=== PATIENT | male | born 1950 | race Caucasian/White ===

== ENCOUNTER 2017-03-12 16:15 | Outpatient (CLI) | payer OTHER ==
[2017-03-12 17:59] LABS: Hematocrit 50.6 % (42.0-52.0); Mean Platelet Volume 7.4 fL (7.4-10.4); Red Blood Cell (RBC) Count 4.89 mill/uL (4.70-6.10); White Blood Cell (WBC) Count 8.3 thou/uL (4.8-10.8)
[2017-03-12 18:22] LABS: Anion Gap 14 mmol/L (10-20); BUN (Urea Nitrogen) 17 mg/dL (8.4-25.7); Calc. Creatinine Clearance 0 mL/min (70-130); Calcium 9.7 mg/dL (7.8-10.44); Carbon Dioxide 31 mmol/L (23-31); Chloride 97 mmol/L (98-107); Estimated GFR-MDRD Greater than 90
--- NOTE | 2017-03-13 13:10 | EKG ---
Test Reason : Blood Pressure : / mmHG Vent. Rate : 075 BPM Atrial Rate : 075 BPM P-R Int : 170 ms QRS Dur : 098 ms QT Int : 374 ms P-R-T Axes : 043 042 023 degrees QTc Int : 417 ms Normal sinus rhythm Normal ECG When compared with ECG of 05-NOV-2013 08:33, No significant change was found Confirmed by ISAEL ORTEGA ([id number]) on 03/13/2017 1:09:59 PM Referred By: MARCIE Confirmed By:ISAEL ORTEGA
== END 2017-03-12 16:16 | disposition home or self-care (01) ==
LOC: LABBT 16:15
PROVIDERS: ATTEND Orthopaedic Surgery
DX: Z01.818 Encounter for other preprocedural examination (principal); M75.41 Impingement syndrome of right shoulder; M24.011 Loose body in right shoulder
CPT/HCPCS: 80048; 85027; 93005; 93010

== ENCOUNTER 2017-03-15 09:03 | Day surgery (SDC) | payer OTHER ==
[2017-03-12 16:41] VITALS: BMI 31.5
[2017-03-15] MEDS ORDERED: Bupivacaine/Epinephrine 0.25% 30 ML VIAL ONE (10:13)
[2017-03-15] MEDS ORDERED: Midazolam HCl 2 mg/2 ml Vial ONE (10:54)
[2017-03-15] MEDS ORDERED: Fentanyl 100 MCG/2 ML VIAL ONE ×2 (10:54→12:12)
[2017-03-15] MEDS ORDERED: Lidocaine 1% (PF) 30 ML VIAL ONE (10:54)
[2017-03-15] MEDS ORDERED: CEFAZOLIN/Water 2 GM/20 ML SYRINGE ONE (11:46)
[2017-03-15] MEDS ORDERED: traMADol HCl 50 MG TAB PO PRN ×2 (11:51)
[2017-03-15] MEDS ORDERED: Ropivacaine 0.2% 550 ML 550 ML NERVE BLCK SCH (11:51)
[2017-03-15] MEDS ORDERED: HYDROcodone/Acetaminophen 5/325 mg Tablet PO PRN ×2 (11:51)
[2017-03-15] MEDS ORDERED: Ondansetron HCl/PF 4 MG/2 ML Vial IVP PRN (11:51)
[2017-03-15] MEDS ORDERED: Ketorolac Tromethamine 30 MG/ML VIAL IVP PRN (11:51)
[2017-03-15] MEDS ORDERED: Fentanyl 100 MCG/2 ML VIAL IV PRN (11:51)
[2017-03-15] MEDS ORDERED: Promethazine HCl 25 MG/ML VIAL IM PRN (11:51)
[2017-03-15] MEDS ORDERED: Zolpidem Tartrate 5 MG TAB PO PRN (11:51)
[2017-03-15] MEDS ORDERED: Albuterol Sulfate 1.25 MG/3 ML NEB ONE (15:38)
[2017-03-15] MEDS ORDERED: Ropivacaine 0.5% HCl/PF (150 MG/30 ML VIAL) ONE (16:21)
[2017-03-15] MEDS ORDERED: Labetalol HCl 100 MG/20 ML VIAL ONE (17:14)
[2017-03-15] MEDS ORDERED: Propofol 200 MG/20 ML VIAL ONE (17:14)
[2017-03-15] MEDS ORDERED: Lidocaine 1% PF 5 ML VIAL ONE (17:14)
[2017-03-15] MEDS ORDERED: Ondansetron HCl/PF 4 MG/2 ML Vial ONE (17:14)
[2017-03-15] MEDS ORDERED: Ketorolac Tromethamine 30 MG/ML VIAL ONE (18:26)
[2017-03-15] MEDS ORDERED: Sodium Chloride 0.9% 10 ML ONE (18:32)
--- NOTE | 2017-03-15 20:52 | OP ---
DATE OF OPERATION: 03/15/2017 PREOPERATIVE DIAGNOSES: 1. Large rotator cuff tear of the right shoulder. 2. Severe arthritis of right shoulder. 3. Tearing of the superior and posterior labrum. 4. Possible biceps tendonitis in the right shoulder. POSTOPERATIVE DIAGNOSES: 1. Large rotator cuff tear of the right shoulder. 2. Severe arthritis of right shoulder. 3. Tearing of the superior and posterior labrum. 4. Biceps tendon was already completely torn and was out of the joint. PROCEDURES: Arthroscopy of the right shoulder with subacromial decompression, rotator cuff repair, e xcision of distal clavicle and shaving of torn labrum. SURGEON: Eugene Alexander M.D. ANESTHESIA: General. TECHNIQUE: The patient was given preoperative IV antibiotics, taken to the operating room, placed in a supine position. Satisfactory general anesthesia was performed. The patient was then placed in a left lateral decubitus position. All bony prominences were well-padded, and the patient was placed in and his right upper extremity was placed in 15 pounds of traction. The shoulder and upper extremi ty was then sterilely prepped and draped in the usual fashion. The shoulder was then arthroscoped th rough anterior, posterior, lateral and superior lateral portals. Upon entering the shoulder joint, t he patient was noted to have significant tearing of the posterior and posterosuperior aspect of the l abrum and the shaver was used to debride the torn portions of the labrum. The biceps tendon was not present in the shoulder joint and had previously torn and retracted out of the joint. A probe was us ed and the labrum that was still in place over the glenoid was intact and was stable. There were fabian e mild degenerative changes to the shoulder joint. Small loose bodies were removed with the shaver. Upon looking superiorly, there was a large rotator cuff tear where the entire supraspinatus tendon w as detached and portion of the infraspinatus. The subacromial space was entered. There was signific ant amount of synovitis and a partial synovectomy was performed using a 90 degree ArthroWand and the high speed david, and the surface of the acromion was smoothed up and thinned down to get more room fo r the shoulder. There was a very large inferior spur off of the distal aspect of the clavicle, which was impinging on the supraspinatus tendon and muscle using the high speed david. The inferior spur w as removed and then the distal aspect of the clavicle was also removed through the anterior portal. The rotator cuff was evaluated and had radial and horizontal tears, it was cleaned up and then was re paired using Arthrex PushLock anchors. A double row was used for repair and using FiberTape, this pr ovided good repair of the rotator cuff. During the procedure, all the debris was irrigated out of th e shoulder joint and out of the subacromial space. Instruments were removed. The portals were close d with anabel. Sterile dressing was applied. The patient was taken out of traction. He was awaken ed, extubated, and transferred to the recovery room in stable condition. ESTIMATED BLOOD LOSS: 50 mL. COMPLICATIONS: None.
== END 2017-03-15 19:18 | disposition home or self-care (01) ==
LOC: SDC 09:03
PROVIDERS: ATTEND Orthopaedic Surgery
PROC: 0RNJ4ZZ Release Right Shoulder Joint, Percutaneous Endoscopic Approach (ICD-10-PCS; principal; 2017-03-15)
PROC: 0PB94ZZ Excision of Right Clavicle, Percutaneous Endoscopic Approach (ICD-10-PCS; principal; 2017-03-15)
PROC: 0LB14ZZ Excision of Right Shoulder Tendon, Percutaneous Endoscopic Approach (ICD-10-PCS; principal; 2017-03-15)
PROC: 0RCJ4ZZ Extirpation of Matter from Right Shoulder Joint, Percutaneous Endoscopic Approach (ICD-10-PCS; principal; 2017-03-15)
DX: M75.41 Impingement syndrome of right shoulder (principal); M75.101 Unspecified rotator cuff tear or rupture of right shoulder, not specified as traumatic; S43.431A Superior glenoid labrum lesion of right shoulder, initial encounter; M24.011 Loose body in right shoulder; S46.111A Strain of muscle, fascia and tendon of long head of biceps, right arm, initial encounter; I10 Essential (primary) hypertension; E78.5 Hyperlipidemia, unspecified; Z91.041 Radiographic dye allergy status; Z89.612 Acquired absence of left leg above knee; Z96.651 Presence of right artificial knee joint; Z98.890 Other specified postprocedural states; Z79.899 Other long term (current) drug therapy; Z79.891 Long term (current) use of opiate analgesic
CPT/HCPCS: 94799; 96374; A4306; C1713; J1885; J2001; J2250; J2405; J2704; J2795; J3010

== ENCOUNTER 2017-10-24 11:41 | Outpatient (CLI) | payer MEDICARE ==
[2017-10-24 12:47] LABS: Mean Corpuscular HGB CONC 33.9 g/dL (32.0-36.0); Mean Corpuscular Hemoglobin 34.4 pg (27.0-31.0); Mean Platelet Volume 7.5 fL (7.4-10.4); Platelet Count 170 thou/uL (130-400); RBC Distribution Width 10.9 % (11.5-14.5); Red Blood Cell (RBC) Count 4.67 mill/uL (4.70-6.10); White Blood Cell (WBC) Count 6.4 thou/uL (4.8-10.8)
[2017-10-24 13:07] LABS: Anion Gap 13 mmol/L (10-20); BUN (Urea Nitrogen) 19 mg/dL (8.4-25.7); Calc. Creatinine Clearance 0 mL/min (70-130); Carbon Dioxide 30 mmol/L (23-31); Chloride 101 mmol/L (98-107); Estimated GFR-MDRD Greater than 90; Glucose 93 mg/dL (80-115); Potassium 4.1 mmol/L (3.5-5.1); Sodium 140 mmol/L (136-145)
== END 2017-10-24 11:42 | disposition home or self-care (01) ==
LOC: LABBT 11:41
PROVIDERS: ATTEND Orthopaedic Surgery
DX: Z01.818 Encounter for other preprocedural examination (principal); D36.13 Benign neoplasm of peripheral nerves and autonomic nervous system of lower limb, including hip; M76.9 Unspecified enthesopathy, lower limb, excluding foot; M25.762 Osteophyte, left knee
CPT/HCPCS: 80048; 85027; 93005; 93010

== ENCOUNTER 2017-10-25 12:32 | Day surgery (SDC) | payer MEDICARE ==
[2017-10-24 12:05] VITALS: BMI 32.3
[2017-10-25] MEDS ORDERED: Neomycin-Polymyxin 1 ML AMP ONE (14:08)
[2017-10-25] MEDS ORDERED: Fentanyl 100 MCG/2 ML VIAL ONE (14:10)
[2017-10-25] MEDS ORDERED: CEFAZOLIN/Water 2 GM/20 ML SYRINGE ONE (14:16)
[2017-10-25] MEDS ORDERED: Bupivacaine HCl 0.5%/Epinephrine 1:200,000/PF 30 ml Vial ONE (16:00)
--- NOTE | 2017-10-25 20:19 | OP ---
DATE OF OPERATION: 10/25/2017 PREOPERATIVE DIAGNOSES: 1. Patient is status post left above the knee amputation with a painful spur at the distal aspect of the femur. 2. 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 POSTOPERATIVE DIAGNOSES: 1. Patient is status post left above the knee amputation with a painful spur at the distal aspect of the femur. 2. 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 PROCEDURES: 1. Excision of spurs from the left distal femur. 2. Excision of neuromas from the distal left thigh x2. SURGEON: Eugene Alexander M.D. ANESTHESIA: General. TECHNIQUE: Patient was given preoperative IV antibiotics, taken to the operating room and placed in supine position. Satisfactory general anesthesia was performed. The left [id number] amputation stump was sterilely prepped and draped in the usual fashion. Prior to surgery, the patient and Willy hernandez identified the neuromas, one was on the distal lateral aspect of the thigh and one was on the di stal mid posterior aspect of the distal left thigh. They were marked with indelible ink. The left B KA stump was sterilely prepped and draped in the usual fashion. Initially, a 3 cm incision was made over the most painful neuroma on the posterior lateral aspect of the distal thigh. Sharp and blunt d issection was made down through the skin, fatty tissue and fascia of the neuroma was noted to be a la rge and was bluntly dissected further into the thigh and into the muscular area. The incision was th en made in the posterior distal left thigh over the second neuroma which was also located under the f ascia and was bluntly dissected and then transected deeper into the thigh. The distal femur was then located using sharp and blunt dissection and the entire distal femur was exposed. There was a large spur on the distal medial aspect of the distal femur amputation site. There was also scarring aroun d the anterior, posterior, and lateral aspect of the distal femur. These were all removed with eithe r osteotomes or a rongeur and then smoothed down with bone rasp. The wounds were then copiously irri gated with antibiotic solution. Soft tissue envelope was then sutured back over the distal femur usi ng 0 Vicryl in interrupted [id number] sutures. Fat and subcutaneous tissue was closed using Campos ryl, and skin was closed using 3-0 Rapide. The wounds in the distal aspect of the femur were then in jected with a total of 30 mL of 0.5% Marcaine with epinephrine. Sterile dressing was applied. The t ourniquet was released. The patient was awakened, extubated, and transferred to the recovery room in stable condition.
== END 2017-10-25 18:02 | disposition home or self-care (01) ==
LOC: SDC 12:32
PROVIDERS: ATTEND Orthopaedic Surgery
PROC: 0QBC0ZZ Excision of Left Lower Femur, Open Approach (ICD-10-PCS; principal; 2017-10-25)
PROC: 01BD0ZZ Excision of Femoral Nerve, Open Approach (ICD-10-PCS; 2017-10-25)
DX: M76.892 Other specified enthesopathies of left lower limb, excluding foot (principal); T87.34 Neuroma of amputation stump, left lower extremity; M19.90 Unspecified osteoarthritis, unspecified site; E78.00 Pure hypercholesterolemia, unspecified; I10 Essential (primary) hypertension; Z79.899 Other long term (current) drug therapy; Z91.041 Radiographic dye allergy status; Z96.651 Presence of right artificial knee joint
CPT/HCPCS: J0670; J3010

== ENCOUNTER 2019-06-24 08:47 | Outpatient (CLI) | payer MEDICARE, BC ==
--- NOTE | 2019-06-24 09:41 | MRI ---
MRI CERVICAL SPINE WITHOUT CONTRAST: HISTORY: Cervical radiculopathy. Bilateral hand numbness and weakness.. COMPARISON: 05/17/2015. FINDINGS: Appropriate T1 marrow signal intensity of the cervical vertebrae. Cervical spine vertebral body heig hts are maintained. There is no fracture. There are type I and type II Modic changes at the C3-C4 disc space. No significant STIR hyperintensity to suggest vertebral body edema or ligamentous injury. Visualized brain parenchyma, cervicomedullary junction, cervical cord and the upper thoracic cord hav e a normal size and signal intensity. C2-C3: No significant central canal stenosis. Moderate right and left foraminal narrowing due to unco vertebral hypertrophy. C3-C4: Broad-based disc-osteophyte complex abuts the thecal sac. Subarachnoid space is effaced. Moder ate central canal stenosis. There is left greater than right facet hypertrophy. Moderate to severe bilateral foraminal narrowing due to uncovertebral and facet hypertrophy. C4-C5: Broad-based disc osteophyte complex abuts the thecal sac. Mild to moderate central canal steno sis. Moderate to severe bilateral neural foraminal narrowing due to uncovertebral hypertrophy. C5-C6: Broad-based disc-osteophyte complex with moderate central canal stenosis. Moderate to severe b ilateral foraminal narrowing due to uncovertebral hypertrophy. C6-C7: Central disc-osteophyte complex with resultant moderate to severe central canal stenosis. Mode rate to severe bilateral neural foraminal narrowing. C7-T1: 1.1 mm of anterolisthesis of C7 upon T1. No significant central canal stenosis. Mild right marilynn ral foraminal narrowing. Left neural foramen is patent. IMPRESSION: Degenerative changes of the cervical spine as described above. Transcribed Date/Time: 06/24/2019 9:47 AM
--- NOTE | 2019-06-24 09:56 | RAD ---
FOUR VIEWS CERVICAL SPINE: COMPARISON: 12/02/2014. HISTORY: Cervical radiculopathy. FINDINGS: On the AP projection, multilevel facet arthropathy. No malalignment. In the neutral position, there is no prevertebral soft tissue swelling. Predental space is normal. Ce rvical spine is adequately assessed from C1 through C6. Evaluation of the remainder of the cervical spine is limited. Spondylolisthesis: C3-C4: Neutral: No significant spondylolisthesis; flexion 1.7 mm of retrolisthesis of C3 upon C4; ext ension: Retrolisthesis resolves. There is severe degenerative change with loss of disc space height and osteophyte formation at C3-C4, C4-C5, and C5-C6. Additional severe degenerative change is suspected at C6-C7, incompletely evaluated. Visually cervical spine vertebral body heights are maintained. No fracture. IMPRESSION: 1. Multilevel degenerative change of the cervical spine as described above. 2. Grade 1 retrolisthesis of C3 upon C4 during flexion. Transcribed Date/Time: 06/24/2019 10:05 AM
== END 2019-06-24 08:48 | disposition home or self-care (01) ==
LOC: MRI 08:47
PROVIDERS: ATTEND Physician Assistant
DX: M47.22 Other spondylosis with radiculopathy, cervical region (principal); M54.2 Cervicalgia; R20.2 Paresthesia of skin; M43.12 Spondylolisthesis, cervical region
CPT/HCPCS: 72050; 72141

== ENCOUNTER 2019-09-05 06:26 | Outpatient (CLI) | payer MEDICARE, BC, OTHER ==
[2019-09-05 11:53] LABS: Hemoglobin 17.4 g/dL (14.0-18.0); Mean Corpuscular HGB CONC 33.8 g/dL (32.0-36.0); Mean Corpuscular Hemoglobin 34.7 pg (27.0-31.0); Mean Platelet Volume 8.4 fL (7.4-10.4); Platelet Count 174 thou/uL (130-400); RBC Distribution Width 11.2 % (11.5-14.5); Red Blood Cell (RBC) Count 5.01 mill/uL (4.70-6.10); White Blood Cell (WBC) Count 6.7 thou/uL (4.8-10.8)
[2019-09-05 11:57] LABS: PTT 33.6 sec (22.9-36.1); Prothrombin Time 12.8 sec (12.0-14.7)
[2019-09-05 12:11] LABS: Anion Gap 12 mmol/L (10-20); BUN (Urea Nitrogen) 12 mg/dL (8.4-25.7); Calc. Creatinine Clearance 0 mL/min (70-130); Calcium 9.7 mg/dL (7.8-10.44); Carbon Dioxide 33 mmol/L (23-31); Chloride 95 mmol/L (98-107); Estimated GFR-MDRD Greater than 90; Glucose 101 mg/dL (80-115); Potassium 3.6 mmol/L (3.5-5.1); Sodium 136 mmol/L (136-145)
[2019-09-05 17:51] LABS: SARS-CoV-2 MS2 Positive; SARS-CoV-2 N Gene Negative; SARS-CoV-2 S Gene Negative; SARS-CoV-2 orf1ab Negative
== END 2019-09-05 06:27 | disposition home or self-care (01) ==
LOC: LABBT 06:26
PROVIDERS: ATTEND Surgery
DX: Z01.818 Encounter for other preprocedural examination (principal); Z11.59 Encounter for screening for other viral diseases; M50.10 Cervical disc disorder with radiculopathy, unspecified cervical region; M48.02 Spinal stenosis, cervical region
CPT/HCPCS: 80048; 85027; 85610; 85730; 87081; 93005; U0003; 87635; 93010

== ENCOUNTER 2019-09-05 09:00 | Inpatient (IN) | payer MEDICARE, BC, OTHER ==
[2019-09-09] MEDS ORDERED: Thrombin 5000 UNITS/5 ML VIAL ONE ×2 (06:31→12:21)
[2019-09-09] MEDS ORDERED: Sodium Chloride 0.9% 0 ML ONE (06:31)
[2019-09-09] MEDS ORDERED: SUGAMMADEX SODIUM 500 MG/5 ML VIAL ONE (07:03)
[2019-09-09] MEDS ORDERED: Fentanyl 100 MCG/2 ML VIAL ONE ×3 (07:03→16:21)
[2019-09-09] MEDS ORDERED: Phenylephrine 10 MG/ML VIAL ONE (08:27)
[2019-09-09] MEDS ORDERED: Ondansetron HCl/PF 4 MG/2 ML Vial IVP PRN (09:12)
[2019-09-09] MEDS ORDERED: HYDROmorphone 2 MG/ML VIAL SLOW IVP PRN (09:12)
[2019-09-09] MEDS ORDERED: Promethazine HCl 25 MG/ML VIAL SLOW IVP PRN (09:12)
[2019-09-09] MEDS ORDERED: Ketorolac Tromethamine 30 MG/ML VIAL IVP PRN (09:12)
[2019-09-09] MEDS ORDERED: Promethazine HCl 25 MG/ML VIAL IM PRN ×2 (09:12→15:42)
[2019-09-09] MEDS ORDERED: Meperidine HCl/PF 25 MG/ML VIAL SLOW IVP PRN (09:12)
[2019-09-09] MEDS ORDERED: Albumin 5% 500 ML ONE ×2 (12:11→12:38)
[2019-09-09] MEDS ORDERED: HYDROmorphone 2 MG/ML VIAL ONE ×2 (12:19→15:23)
[2019-09-09] MEDS ORDERED: Metoprolol Tartrate 5 MG/5 ML VIAL ONE (12:41)
[2019-09-09] MEDS ORDERED: PHENYLEPHRINE-NS 100 MCG/ML 10 ML SYRINGE ONE (12:41)
[2019-09-09] MEDS ORDERED: Ketorolac Tromethamine 30 MG/ML VIAL ONE (12:41)
[2019-09-09] MEDS ORDERED: EPHEDRINE 25 MG/5 ML SYRINGE ONE (12:41)
[2019-09-09] MEDS ORDERED: Ondansetron PF 4 MG/2 ML Vial ONE (12:41)
[2019-09-09] MEDS ORDERED: Lidocaine 1% PF 5 ML VIAL ONE (12:41)
[2019-09-09] MEDS ORDERED: PROPOFOL 200 MG/20 ML VIAL ONE (12:41)
[2019-09-09] MEDS ORDERED: Rocuronium Bromide 10 MG/ML (10ML VIAL) ONE (12:41)
[2019-09-09] MEDS ORDERED: Vecuronium 10 MG VIAL ONE (12:41)
[2019-09-09] MEDS ORDERED: Dexamethasone 20 MG/5 ML VIAL ONE (12:41)
[2019-09-09] MEDS ORDERED: Mag-Al 1200 mg/1200 mg/30 ML UDCUP PO PRN (14:46)
[2019-09-09] MEDS ORDERED: Bisacodyl 10 MG SUPP PR PRN (14:46)
[2019-09-09] MEDS ORDERED: Acetaminophen 325 MG TAB PO PRN (14:46)
[2019-09-09] MEDS ORDERED: Milk Of Magnesia 30 ML UDCUP PO PRN (14:46)
[2019-09-09] MEDS ORDERED: Ondansetron PF 4 MG/2 ML Vial IVP PRN ×2 (14:46→15:42)
[2019-09-09] MEDS ORDERED: Fleet Enema 133 ML BOT PR PRN (14:46)
[2019-09-09] MEDS ORDERED: fentaNYL Citrate/PF 2,000 MCG in Sodium Chloride 0.9% 60 ML IV PRN (15:42)
[2019-09-09] MEDS ORDERED: diphenhydrAMINE 50 MG/ML VIAL IVP PRN (15:42)
[2019-09-09] MEDS ORDERED: Naloxone HCl 0.4 mg/ml Vial IV PRN (15:42)
[2019-09-09] MEDS ORDERED: diphenhydrAMINE 50 MG/ML VIAL IM PRN (15:42)
[2019-09-09] MEDS ORDERED: diphenhydrAMINE 25 MG CAP PO PRN (15:42)
[2019-09-09] MEDS ORDERED: Communication Order-Pharmacy FS SCH (15:45)
[2019-09-09 18:00] VITALS: BMI 28.6
[2019-09-09] MEDS: Sodium Chloride 0.9% 1,000 ML IV SCH (19:47)
[2019-09-09] MEDS: Gabapentin 400 MG CAP PO SCH (19:50)
[2019-09-09] MEDS: Zolpidem Tartrate 5 MG TAB PO PRN (20:58)
[2019-09-09] MEDS: tiZANidine HCl 4 MG TAB PO PRN (20:58)
[2019-09-09] MEDS: DULoxetine 60 MG CAP PO SCH (20:58)
[2019-09-09] MEDS ORDERED: Zolpidem Tartrate 5 MG TAB PO SCH (21:00)
[2019-09-09] MEDS ORDERED: Atorvastatin Calcium 20 MG TAB PO SCH (21:00)
[2019-09-09] MEDS: CEFAZOLIN 2 GM in Premix Bag 1 BAG IVPB SCH (21:05)
[2019-09-10] MEDS: Gabapentin 400 MG CAP PO SCH ×5 (00:06→23:20)
[2019-09-10] MEDS: Sodium Chloride 0.9% 1,000 ML IV SCH ×2 (00:07→17:29)
[2019-09-10] MEDS ORDERED: HYDROcodone/Acetaminophen 10/325 mg Tablet PO SCH (04:15)
[2019-09-10] MEDS: CEFAZOLIN 2 GM in Premix Bag 1 BAG IVPB SCH ×3 (05:08→21:29)
[2019-09-10] MEDS: tiZANidine HCl 4 MG TAB PO PRN ×2 (05:09→21:33)
[2019-09-10 05:14] LABS: #Lymphocytes 1.8 thou/uL (1.20-3.40); #Monocytes 1.5 thou/uL (0.11-0.59); #Neutrophils 12.2 thou/uL (1.40-6.50); %Lymphocytes 11.3 % (21.0-51.0); %Monocytes 9.9 % (0.0-10.0); %Neutrophils 78.7 % (42.0-75.0); Hemoglobin 13.1 g/dL (14.0-18.0); Mean Corpuscular Hemoglobin 35.7 pg (27.0-31.0); Mean Platelet Volume 8.2 fL (7.4-10.4); Platelet Count 178 thou/uL (130-400); RBC Distribution Width 11.1 % (11.5-14.5); Red Blood Cell (RBC) Count 3.67 mill/uL (4.70-6.10); White Blood Cell (WBC) Count 15.4 thou/uL (4.8-10.8)
[2019-09-10 05:32] LABS: Anion Gap 14 mmol/L (10-20); BUN (Urea Nitrogen) 14 mg/dL (8.4-25.7); Calc. Creatinine Clearance 128 mL/min (70-130); Carbon Dioxide 27 mmol/L (23-31); Chloride 100 mmol/L (98-107); Estimated GFR-MDRD Greater than 90; Glucose 129 mg/dL (80-115); Potassium 4.3 mmol/L (3.5-5.1); Sodium 137 mmol/L (136-145)
--- NOTE | 2019-09-10 08:22 | OP ---
DATE OF PROCEDURE: 09/09/2019 LOCATION: OR 12. CODING ANALYST: Jayda Whyte PA-C PREPROCEDURE DIAGNOSES: Multilevel cervical stenosis with spinal cord compression, clinical and radiologic and nerve root compression, clinical and radiologic. POSTPROCEDURE DIAGNOSES: Multilevel cervical stenosis with spinal cord compression, clinical and radiologic and nerve root compression, clinical and radiologic. PROCEDURES PERFORMED: 1. Anterior C3-C4, C4-C5, C5-C6, C6-C7 diskectomies for decompression of spinal cord, nerve roots and nondenominational of normal lordotic alignment. 2. Interbody spacer placement after preparation of endplates and diskectomy C3-C4, C4-C5, C5-C6, C6-C7. 3. Anterior cervical plate and screw fixation, C3, C4, C5, C6, and C7. 4. Use of operating microscope for microdissection. 5. C3, C4, C5, C6, and top of C7 laminectomies, partial facetectomies, and foraminotomies. 6. Posterior screw rolf fixation C3 through C7 bilaterally. 7. Posterolateral arthrodesis C3 through C7, local bone autograft obtained with same incision and allograft. DESCRIPTION OF PROCEDURE: After informed consent was obtained from the patient, the patient was brought to the OR. Proper patient, pause, and identification were carried out. He was placed supine on the OR table, and all appropriate points were padded. A right anterior oblique aura would allow for approach to C3 through C7 segments. This area was sterilely cleansed, prepared, and draped. Proper patient, pause, and identification were carried out. The wound was then opened with a combination of sharp, monopolar, and blunt dissection and we proceeded lateral to the tracheoesophageal bundle and medial to the right carotid sheath. We identified the prevertebral layer of deep cervical fascia and anterior C3, C4, C5, C6, and C7 segments and disk spaces were exposed. Localization film confirmed our area of interest. We then performed distraction at C3-C4, C4-C5, C5-C6, and C6-C7 with diskectomies at each of those levels. Preparation of endplates, placement of interbody spacers, packed with graft from C3 through C7. The microscope was removed. Anterior cervical plate and screw fixation then occurred with final tightening from C3 through C7. The wound was closed in anatomic layers following the placement of a drain. We then flipped the patient prone with pins and opened up following sterile cleansing, preparation, and draping the C3 through C7 segments. Localization film confirmed area of interest and I performed a C3 through C7 laminectomy, partial facetectomy, foraminotomies, and screws were placed in lateral mass regions and rods placed. Final tightening occurred. Posterolateral arthrodesis of C3 through C7 also occurred. Copious irrigation occurred throughout as did maximizing hemostasis. The wound was then closed in anatomic layers over a drain. The patient emerged from anesthesia. Job ID: [id number]
[2019-09-10] MEDS: Lisinopril/Hydrochlorothiazide 20/25 mg Tablet PO SCH (08:53)
[2019-09-10] MEDS: Atorvastatin Calcium 20 MG TAB PO SCH (08:54)
[2019-09-10] MEDS: DULoxetine 60 MG CAP PO SCH ×2 (08:54→20:24)
--- NOTE | 2019-09-10 09:29 | PRG ---
DATE OF SERVICE: 09/10/2019 Mr. Guallpa is postoperative day #1 from anterior-posterior cervical decompression and reconstruction of spine. He states his paresthesias in his hands are gone. He obviously has significant pain . His drain output both in the anterior and posterior compartments has been a total of 250. We will leave these in. He has a Campoverde catheter in place and is otherwise neurologically intact. We will work on pain control today. Job ID: [id number]
[2019-09-10] MEDS ORDERED: Buprenorphine HCl 2 MG SL TAB SL SCH (10:15)
[2019-09-10] MEDS: Acetaminophen 500 MG TAB PO SCH ×3 (11:22→23:20)
[2019-09-10] MEDS ORDERED: BUPRENORPHINE 300 MCG TOP SCH (12:00)
[2019-09-10] MEDS ORDERED: Fentanyl 100 MCG/2 ML VIAL SLOW IVP PRN (12:46)
[2019-09-10] MEDS: BUPRENORPHINE 300 MCG TOP SCH (20:24)
[2019-09-10] MEDS: Zolpidem Tartrate 5 MG TAB PO PRN (21:33)
[2019-09-11] MEDS: Acetaminophen 500 MG TAB PO SCH ×4 (05:17→23:38)
[2019-09-11] MEDS: Gabapentin 400 MG CAP PO SCH ×4 (05:17→23:38)
[2019-09-11] MEDS: CEFAZOLIN 2 GM in Premix Bag 1 BAG IVPB SCH ×3 (05:18→21:08)
[2019-09-11] MEDS: tiZANidine HCl 4 MG TAB PO PRN ×3 (05:30→22:08)
[2019-09-11] MEDS: Sodium Chloride 0.9% 1,000 ML IV SCH ×2 (06:32→19:51)
[2019-09-11] MEDS: BUPRENORPHINE 300 MCG TOP SCH ×2 (08:42→21:08)
[2019-09-11] MEDS: DULoxetine 60 MG CAP PO SCH ×2 (08:43→19:54)
[2019-09-11] MEDS: Atorvastatin Calcium 20 MG TAB PO SCH (08:43)
[2019-09-11] MEDS: Lisinopril/Hydrochlorothiazide 20/25 mg Tablet PO SCH (08:43)
--- NOTE | 2019-09-11 09:48 | PRG ---
DATE OF SERVICE: Mr. Guallpa is postoperative day #2 following a multilevel anterior-posterior decompression and reconstruction of his cervical spine. He is doing better today. His hemodynamics have been stable. His drain output anterior-posterior remains high. We will leave it in. We will work on transfers and inpatient rehab. Job ID: [id number]
[2019-09-11] MEDS: Ketorolac Tromethamine 30 MG/ML VIAL IVP PRN (21:08)
[2019-09-11] MEDS: Zolpidem Tartrate 5 MG TAB PO PRN (22:08)
[2019-09-12] MEDS: Acetaminophen 500 MG TAB PO SCH ×2 (05:05→11:28)
[2019-09-12] MEDS: CEFAZOLIN 2 GM in Premix Bag 1 BAG IVPB SCH ×2 (05:05→14:00)
[2019-09-12] MEDS: Gabapentin 400 MG CAP PO SCH ×2 (05:05→11:28)
[2019-09-12] MEDS: Atorvastatin Calcium 20 MG TAB PO SCH (09:14)
[2019-09-12] MEDS: Lisinopril/Hydrochlorothiazide 20/25 mg Tablet PO SCH (09:15)
[2019-09-12] MEDS: DULoxetine 60 MG CAP PO SCH (09:15)
[2019-09-12] MEDS: BUPRENORPHINE 300 MCG TOP SCH (09:15)
[2019-09-12] MEDS: Sodium Chloride 0.9% 1,000 ML IV SCH (09:23)
[2019-09-12] MEDS: Ketorolac Tromethamine 30 MG/ML VIAL IVP PRN ×2 (09:28→15:22)
--- NOTE | 2019-09-12 11:20 | PRG ---
DATE OF SERVICE: 09/12/2019 Mr. Guallpa is now 3 days out from his anterior-posterior cervical reconstruction and decompression surgery. He is doing very well. He has met criteria for discharge. Job ID: [id number]
[2019-09-12 15:16] VITALS: BP 134/91; TEMP 98.3
[2019-09-12] MEDS: tiZANidine HCl 4 MG TAB PO PRN (15:22)
== END 2019-09-12 16:16 | DRG 454 ==
LOC: SURG A 09-09 06:00
PROVIDERS: ADMIT Surgery; ATTEND Surgery
PROC: 0RG20A0 Fusion of 2 or more Cervical Vertebral Joints with Interbody Fusion Device, Anterior Approach, Anterior Column, Open Approach (ICD-10-PCS; principal; 2019-09-09)
PROC: 0RG2071 Fusion of 2 or more Cervical Vertebral Joints with Autologous Tissue Substitute, Posterior Approach, Posterior Column, Open Approach (ICD-10-PCS; 2019-09-09)
PROC: 0RB30ZZ Excision of Cervical Vertebral Disc, Open Approach (ICD-10-PCS; 2019-09-09)
DX: M48.02 Spinal stenosis, cervical region (principal); G95.20 Unspecified cord compression; G54.2 Cervical root disorders, not elsewhere classified; Z11.59 Encounter for screening for other viral diseases
CPT/HCPCS: 36415; 76000; 80048; 85025; 86850; 86900; 86901; C1713; C1768; C1776; J0690; J1100; J1170; J1885; J2001; J2370; J2405; J2704; J3010; J3370; P9045

== ENCOUNTER 2019-10-29 12:20 | Outpatient (CLI) | payer MEDICARE, BC ==
--- NOTE | 2019-10-29 13:27 | RAD ---
CERVICAL SPINE 3 VIEWS: HISTORY: Cervical radiculopathy. Neck pain. COMPARISON: 06/24/2019. FINDINGS: Postoperative changes are now noted. Anterior plate and screws transfix C3, C4, C5, C6, and C7 level s with interbody implants at these levels. There are posterior pedicle screws throughout these level s. Hardware appears adequately positioned. Posterior alignment is preserved with posterior spondylo sis again noted. IMPRESSION: Postoperative changes of the cervical spine since the prior exam. POS: AH
== END 2019-10-29 12:21 | disposition home or self-care (01) ==
LOC: RAD 12:20
PROVIDERS: ATTEND Physician Assistant
DX: M50.10 Cervical disc disorder with radiculopathy, unspecified cervical region (principal); Z98.890 Other specified postprocedural states
CPT/HCPCS: 72040

== ENCOUNTER 2020-05-07 13:55 | Outpatient (CLI) | payer MEDICARE, BC | END 2020-05-07 13:56 | disposition home or self-care (01) | LOC: BICRAD 13:55 | PROVIDERS: ATTEND Surgery | DX: M54.2 Cervicalgia (principal); Z98.1 Arthrodesis status | CPT/HCPCS: 72050 ==

== ENCOUNTER 2020-11-25 | Outpatient (CLI) | payer MEDICARE, BC | END 2020-11-25 07:58 | disposition home or self-care (01) ==

== ENCOUNTER 2020-11-26 05:43 | Day surgery (SDC) | payer MEDICARE, BC ==
[2020-11-24 14:18] VITALS: BMI 32.5
[2020-11-26] MEDS ORDERED: Bacitracin Zinc Ointment 30 gm TUBE ONE (06:17)
[2020-11-26] MEDS ORDERED: Bupivacaine PF 0.5% 30 ML VIAL ONE (06:17)
[2020-11-26] MEDS ORDERED: Betamet Acet/Betamet Na Ph 30 MG/5 ML VIAL ONE (06:17)
[2020-11-26] MEDS ORDERED: Neomycin-Polymyxin 1 ML AMP ONE (06:17)
[2020-11-26] MEDS ORDERED: Midazolam HCl 2 mg/2 ml Vial ONE (06:28)
[2020-11-26] MEDS ORDERED: Fentanyl 100 MCG/2 ML VIAL ONE (06:28)
[2020-11-26] MEDS ORDERED: PROPOFOL 200 MG/20 ML VIAL ONE (07:10)
[2020-11-26] MEDS ORDERED: Ondansetron PF 4 MG/2 ML Vial ONE (07:10)
[2020-11-26] MEDS ORDERED: Dexamethasone 20 MG/5 ML VIAL ONE (07:10)
[2020-11-26] MEDS ORDERED: Lidocaine 1% PF 5 ML VIAL ONE (07:10)
[2020-11-26] MEDS ORDERED: Ketorolac Tromethamine 30 MG/ML VIAL ONE (08:45)
[2020-11-26] MEDS ORDERED: Albuterol Sulfate 1.25 MG/3 ML NEB ONE (10:25)
== END 2020-11-26 11:02 | disposition home or self-care (01) ==
LOC: SDC 05:43
PROVIDERS: ATTEND Orthopaedic Surgery Hand Surgery
PROC: 01N50ZZ Release Median Nerve, Open Approach (ICD-10-PCS; principal; 2020-11-26)
PROC: 0LN60ZZ Release Left Lower Arm and Wrist Tendon, Open Approach (ICD-10-PCS; 2020-11-26)
DX: G56.02 Carpal tunnel syndrome, left upper limb (principal); M65.4 Radial styloid tenosynovitis [de Quervain]; Z79.899 Other long term (current) drug therapy; Z91.041 Radiographic dye allergy status
CPT/HCPCS: 71045; J0690; J0702; J1100; J1885; J2250; J2405; J2704; J3010; S0020

== ENCOUNTER 2022-03-28 16:37 | Outpatient (CLI) | payer MEDICARE, BC | END 2022-03-28 16:38 | disposition home or self-care (01) | LOC: RAD 16:37 | PROVIDERS: ATTEND Student in an Organized Health Care Education/Training Program | DX: M25.571 Pain in right ankle and joints of right foot (principal); M76.891 Other specified enthesopathies of right lower limb, excluding foot; M89.8X7 Other specified disorders of bone, ankle and foot ==

== ENCOUNTER 2023-05-15 14:15 | Outpatient (CLI) | payer MEDICARE, BC ==
[2023-05-15 15:42] LABS: #Basophils 0.1 10x3/uL (0.0-0.2); #Eosinphils 0.3 10x3/uL (0.0-0.5); #Monocytes 0.7 10x3/uL (0.0-1.1); %Basophils 1.1 % (0.0-2.0); %Eosinophils 2.7 % (0.0-6.0); %Lymphocytes 35.4 % (18.0-47.0); %Monocytes 7.2 % (0.0-10.0); %Neutrophils 53.3 % (40.0-75.0); Hematocrit 47.6 % (38.8-50.0); Hemoglobin 17.1 g/dL (13.5-17.5); Mean Corpuscular HGB CONC 35.9 g/dL (32.0-36.0); Mean Corpuscular Hemoglobin 35.8 pg (27.0-33.0); Mean Corpuscular Volume 99.8 fl (81.2-95.1); Mean Platelet Volume 10.5 fl (7.4-10.4); Platelet Count 161 10x3/uL (150-450); RBC Distribution Width 11.9 % (11.5-14.5); Red Blood Cell (RBC) Count 4.77 10x6/uL (4.32-5.72); White Blood Cell (WBC) Count 9.4 10x3/uL (3.5-10.5)
[2023-05-15 15:56] LABS: PTT 29.2 sec (22.0-33.0); Prothrombin Time 11.1 sec (9.5-12.1)
[2023-05-15 16:10] LABS: ALT (SGPT) 13 U/L (8-55); AST (SGOT) 16 U/L (5-34); Albumin 4.8 g/dL (3.4-4.8); Alkaline Phosphatase 71 U/L (40-110); Anion Gap 14 mmol/L (10-20); BUN (Urea Nitrogen) 20 mg/dL (8.4-25.7); Bilirubin, Total 0.6 mg/dL (0.2-1.2); Calc. Creatinine Clearance 0 mL/min (70-130); Calcium 9.7 mg/dL (7.8-10.44); Carbon Dioxide 30 mmol/L (23-31); Chloride 99 mmol/L (98-107); Estimated GFR 96; Globulin 2.3 g/dL (2.4-3.5); Glucose 113 mg/dL (83-110); Potassium 4.2 mmol/L (3.5-5.1); Protein, Total 7.1 g/dL (5.8-8.1)
[2023-05-15 16:25] LABS: Sodium 139 mmol/L (136-145)
== END 2023-05-15 14:16 | disposition home or self-care (01) ==
LOC: LABBT 14:15
PROVIDERS: ATTEND Internal Medicine Cardiovascular Disease
DX: Z01.812 Encounter for preprocedural laboratory examination (principal)
CPT/HCPCS: 80053; 85025; 85610; 85730

== ENCOUNTER 2023-05-16 06:10 | Day surgery (SDC) | payer MEDICARE, BC ==
[2023-05-16] MEDS ORDERED: Verapamil 5 MG/2 ML VIAL ONE (06:23)
[2023-05-16] MEDS ORDERED: Nitroglycerin 50 MG/250 ML BOT 0 ML ONE (06:23)
[2023-05-16] MEDS ORDERED: Heparin 10,000 UNITS/ 10 ML VIAL ONE (06:23)
[2023-05-16] MEDS ORDERED: Midazolam HCl 2 mg/2 ml Vial ONE (07:12)
[2023-05-16] MEDS ORDERED: fentaNYL 50 mcg/mL 1 mL Vial ONE ×2 (07:12→09:07)
[2023-05-16 07:27] LABS: Cardiac Risk 3.4 (Less than 4.5)
== END 2023-05-16 11:10 | disposition home or self-care (01) ==
LOC: SDC 06:10
PROVIDERS: ATTEND Internal Medicine Cardiovascular Disease
PROC: 4A023N7 Measurement of Cardiac Sampling and Pressure, Left Heart, Percutaneous Approach (ICD-10-PCS; principal; 2023-05-16)
PROC: B200YZZ Plain Radiography of Single Coronary Artery using Other Contrast (ICD-10-PCS; 2023-05-16)
DX: R94.39 Abnormal result of other cardiovascular function study (principal); R94.31 Abnormal electrocardiogram [ECG] [EKG]; I10 Essential (primary) hypertension; M19.90 Unspecified osteoarthritis, unspecified site; Z88.8 Allergy status to other drugs, medicaments and biological substances; Z90.49 Acquired absence of other specified parts of digestive tract; Z96.651 Presence of right artificial knee joint; Z79.891 Long term (current) use of opiate analgesic; Z79.899 Other long term (current) drug therapy; Z87.891 Personal history of nicotine dependence; Z91.040 Latex allergy status
CPT/HCPCS: 80061; 93458; C1769 ×2; C1887; J3010; 99152; J1644; J2250

== ENCOUNTER 2023-06-19 | Outpatient (CLI) | payer MEDICARE, BC | END 2023-06-19 09:59 | disposition home or self-care (01) | DX: Z01.818 Encounter for other preprocedural examination (principal); C61 Malignant neoplasm of prostate; N40.1 Benign prostatic hyperplasia with lower urinary tract symptoms; G54.6 Phantom limb syndrome with pain; G90.50 Complex regional pain syndrome I, unspecified; N52.9 Male erectile dysfunction, unspecified; N13.8 Other obstructive and reflux uropathy ==

== ENCOUNTER 2023-07-05 13:22 | Outpatient (CLI) | payer MEDICARE, BC ==
[2023-07-05] MEDS ORDERED: Iopamidol-370 76% 500 ML BOT (X-RAY USE) FS ONE (13:33)
== END 2023-07-05 13:23 | disposition home or self-care (01) ==
LOC: RAD 13:22
PROVIDERS: ATTEND Urology
DX: C61 Malignant neoplasm of prostate (principal)
CPT/HCPCS: 51600; 74430; Q9967

== ENCOUNTER 2025-01-05 09:26 | Emergency (ER) | payer MEDICARE, BC ==
[2025-01-05 10:52] LABS: #Basophils 0.06 10x3/uL (0.0-0.2); #Eosinophils 0.38 10x3/uL (0.0-0.7); #Monocytes 0.66 10x3/uL (0.11-0.59); #Neutrophils 4.03 10x3/uL (1.40-6.50); %Basophils 0.8 % (0.0-1.0); %Eosinophils 4.8 % (0.0-10.0); %Lymphocytes 35.1 % (21.0-51.0); %Monocytes 8.3 % (0.0-10.0); %Neutrophils 50.5 % (42.0-75.0); Hematocrit 41.6 % (42.0-52.0); Hemoglobin 13.5 g/dL (14.0-18.0); Mean Corpuscular Hemoglobin 34.7 pg (27.0-31.0); Mean Corpuscular Volume 106.9 fL (78.0-98.0); Platelet Count 183 10x3/uL (130-400); Red Blood Cell (RBC) Count 3.89 mill/uL (4.70-6.10); White Blood Cell (WBC) Count 7.96 10x3/uL (4.8-10.8)
[2025-01-05] MEDS ORDERED: Ondansetron PF 4 MG/2 ML Vial ONE (11:13)
[2025-01-05 11:40] LABS: ALT (SGPT) 46 U/L (Less than 45); AST (SGOT) 84 U/L (11-34); Albumin 4.1 g/dL (3.1-4.5); Alkaline Phosphatase 72 U/L (40-110); Anion Gap 13 mmol/L (10-20); BUN (Urea Nitrogen) 22 mg/dL (8.4-25.7); Bilirubin, Total 0.3 mg/dL (0.3-1.2); Calc. Creatinine Clearance 0 mL/min (70-130); Calcium 9.5 mg/dL (7.8-10.44); Carbon Dioxide 34 mmol/L (23-31); Chloride 96 mmol/L (98-107); Globulin 2.8 g/dL (2.4-3.5); Glucose 98 mg/dL (83-110); Potassium 4.2 mmol/L (3.5-5.1); Sodium 139 mmol/L (136-145)
[2025-01-05 12:37] LABS: Bacteria/HPF None Seen HPF (None Seen); CAUTI Indications for Culture Pelvic or flank pain; Glucose, Urine (Dipstick) Normal (Negative); Leukocyte Negative Leu/uL (Negative); Protein, Urine (Dipstick) Negative (Neg-Trace); RBC/HPF None Seen HPF (0-3); Specific Gravity, Urine 1.029 (1.002-1.036); WBC/HPF 0-3 HPF (0-3)
[2025-01-05 12:38] LABS: Urine Culture Reflex No No
[2025-01-05] MEDS ORDERED: Iopamidol-370 76% 500 ML MDV (1 ML CHARGE) ONE (13:25)
== END 2025-01-05 13:09 | disposition home or self-care (01) ==
LOC: ERS 09:26
DX: S39.92XA Unspecified injury of lower back, initial encounter (principal); M54.30 Sciatica, unspecified side; I10 Essential (primary) hypertension; V48.5XXA Car driver injured in noncollision transport accident in traffic accident, initial encounter
CPT/HCPCS: 71260; 74177; 80053; 81001; 85025; 96374; 96375; 96376; 99284; Q9967